=== PATIENT | male | born 1960 | race Caucasian/White ===

== ENCOUNTER → 2018-08-29 | Outpatient (CLI) | payer OTHER ==
[~2018-08-29] MED LIST: OMNIPAQUE 350 MG/ML, 75ML BOTTLE ONE
[2018-08-29 15:25] LABS: CREATININE 1.17 mg/dL (0.7-1.3)
== END | disposition home or self-care (01) ==
LOC: RAD 14:51
PROVIDERS: ATTEND Nurse Practitioner Primary Care
DX: J47.0 Bronchiectasis with acute lower respiratory infection (principal); J98.09 Other diseases of bronchus, not elsewhere classified; J98.4 Other disorders of lung; R91.8 Other nonspecific abnormal finding of lung field
CPT/HCPCS: 36415; 71260; 82565; Q9967

== ENCOUNTER → 2018-12-26 | Outpatient (CLI) | payer OTHER | END | disposition home or self-care (01) | LOC: PETCFH 08:47 | PROVIDERS: ATTEND Internal Medicine Critical Care Medicine | DX: R91.1 Solitary pulmonary nodule (principal); G47.30 Sleep apnea, unspecified | CPT/HCPCS: 78815; A9552 ==

== ENCOUNTER → 2019-01-03 | Outpatient (CLI) | payer OTHER | END | disposition home or self-care (01) | LOC: CARD 12:33 | PROVIDERS: ATTEND Internal Medicine Critical Care Medicine | DX: R06.02 Shortness of breath (principal) | CPT/HCPCS: 94060; 94618; 94726; 94729 ==

== ENCOUNTER 2019-05-28 08:09 | Outpatient (CLI) | payer OTHER | END 2019-05-28 23:59 | disposition home or self-care (01) | LOC: CFH 08:09 → EDSTATUS 08:30 → CFH 23:59 | PROVIDERS: ATTEND Internal Medicine Critical Care Medicine | DX: J47.9 Bronchiectasis, uncomplicated (principal); R91.1 Solitary pulmonary nodule; E03.9 Hypothyroidism, unspecified | CPT/HCPCS: 71250 ==

== ENCOUNTER → 2020-04-27 | Outpatient (CLI) | payer OTHER | END | disposition home or self-care (01) | LOC: CFH 10:45 | PROVIDERS: ATTEND Registered Nurse | DX: R91.1 Solitary pulmonary nodule (principal) | CPT/HCPCS: 71250 ==